=== PATIENT | female | born 1945 | race Caucasian/White ===

== ENCOUNTER 2023-01-23 09:56 | Outpatient (AMB) | payer MEDICARE, SELFPAY ==
--- NOTE | 2023-01-23 10:10 | A.SPINEOV_ITS ---
Intake Intake Visit Reasons: Low back pain Intake Note: Mrs. Mcgill is here today c/o low back pain. MRI done @ [place]/brought disc. 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 She is a pleasant 77 y/o F who comes in today with a chief complaint of low back pain for about 6 months. She states that she fell roughly 1 year ago but did not immediately have pain. At the time of her fall she discovered that she had a L2 compression fracture but states it did not give her any issues for several months. It was not until about 6 months ago that she began actually having pain symptoms in her back. She states that her pain starts in the mid-back and radiates laterally to each side. She reports that the pain worsens as the day progresses, and rates her pain as a 4-5/10. She states that her Gabapentin, and leaning over / holding onto something usually helps alleviate her pain. She reports that walking / standing aggravates her pain. She did endorse a classic ?shopping cart sign? and stated that she is able to complete her shopping if she is able to hold on to something to walk around the store. When describing her pain she points near the L4-5 disc space located medial to the top of the iliac crest. PMH: Generalized anxiety disorder, GERD, asthma, pulmonary arterial hypertension, hyperlipidemia, COPD, obstructive sleep apnea. Social hx: Patient does not smoke, reports no substance use. Medications: Advair, and lips, fluticasone, albuterol, home oxygen, ambrisentan, sildenafil, pantoprazole, atorvastatin, gabapentin. Allergies: Sulfa drugs, sertraline. Physical exam: Mobility: Patient ambulates well, rises from seated position without difficulty. Sensation: Grossly intact. CN: II-XII grossly intact. Strength Testing Upper Extremities: - Deltoid 5/5 right 5/5 left - Biceps 5/5 right 5/5 left - Triceps 5/5 right 5/5 left - Wrist Ext 5/5 right 5/5 left - Wrist Flex 5/5 right 5/5 left - Hand on air talent 5/5 right 5/5 left - Interossei 5/5 right 5/5 left Strength Testing Lower Extremities: - Hip flexion 5/5 right 5/5 left - Knee extension 5/5 right 5/5 left - Dorsiflexion 5/5 right 5/5 left - Plantar flex 5/5 right 5/5 left - EHL 5/5 right 5/5 left Reflexes: - Biceps Right - 2+ Left - 2+ - Triceps Right - 2+ Left - 2+ - Patellar Right - 2+ Left - 2+ - Achilles Right - 2+ Left - 2+ - Plantar Right - 2+ Left - 2+ (-) [facility] review: CT of lumbar spine from 10/2022 shows a stable compression fracture of the L2 vertebral body. Additionally, there is a collapsed disc space at L4-5 with the beginnings of what appears to be [id number] fusion. The extent to which the central canal/nerve roots are affected is difficult to assess without an MRI. Impression: Deborah is a 77-year-old female who comes in today with a chief complaint of low back pain that has been persistent for the last 6 months. She has an older compression fracture at L2 that she states was found after fall >1 year ago. She reports she still able to complete the large majority of her ADLs but does find herself having some difficulty with prolonged walking/physical activity. She reports no radiation of her low back pain and states that is fairly well localized to her low back with some radiation to the lateral sides. It appears that she is having axial low back pain, accompanied by classic spinal stenosis. It is difficult to assess to what extent the central canal is being impinged with only CT imaging. She has not attempted physical therapy, gericare aide teacher, cortisone injections, or acupuncture. The only real intervention she states that she has had has been medication management. She seems that she is able to ambulate well, stands well, has a normal gait, and has very limited restrictions at this time. At this time I do believe it is best that she tries physical therapy to see if I can be of any benefit. If she attends physical therapy and does not find that is been significantly helpful then we can order MRI imaging of her lumbar spine. She does disclose that she has attempted MRIs in the past many years ago and was unable to have them comp leted due to her anxiety. We will readdress this issue and can prescribe her a benzodiazepine medication if needed to complete her MRI if it is indicated. Thank you for allowing us to care for your patient. The total time spent with this visit with this patient was 45 minutes reviewing history, physical exam, CT imaging review, and implementation of treatment plan or further diagnostic testing. Magen Austin MD,PhD [facility] Orders: Orders PT Evaluation and Treatment Today M48.061 - Spinal stenosis, lumbar region without neurogenic claudication Coding Level of Care Code New Pt Level 4 (61893) Diagnoses Lumbar stenosis M48.061
== END 2023-01-23 10:44 | disposition home or self-care (01) ==
PROVIDERS: PCP Internal Medicine; Referring Provider Internal Medicine; Visit Provider Physician Assistant
DX: M48.061 Spinal stenosis, lumbar region without neurogenic claudication (principal)
CPT/HCPCS: 99204

== ENCOUNTER → 2023-01-23 09:56 | Outpatient (BNVA) | payer MEDICARE, SELFPAY | PROVIDERS: PCP Internal Medicine; Referring Provider Internal Medicine; Visit Provider Physician Assistant ==